=== PATIENT | male | born 1955 | race Caucasian/White ===

== ENCOUNTER 2023-05-15 11:14 | Outpatient (CLI) | payer OTHER, SELFPAY ==
--- NOTE | ~2023-05-15 | XR_ITS ---
AP view of the pelvis and AP and lateral views of the right hip Clinical history: Pain Findings: No acute fracture or dislocation is seen. Osseous alignment is anatomic. There is mild dege nerative change of the right hip joint. Left hip joint is preserved. Soft tissues are unremarkable. 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 Reviewed, dictated and finalized at location . 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
== END 2023-05-15 11:15 ==
PROVIDERS: PCP Family Medicine; Visit Provider Family Medicine
DX: M25.551 Pain in right hip (principal)
CPT/HCPCS: 73502

== ENCOUNTER 2023-07-10 08:01 | Day surgery (SDC) | payer OTHER, SELFPAY ==
[2023-05-27 10:41] VITALS: BMI 27.4
[2023-06-05 10:59] VITALS: BMI 27.0
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
[2023-07-10 09:58] VITALS: BP 119/81; PULSE 104; RESP 20; TEMP 37.6; O2SAT 96
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
[2023-07-10] MEDS: LACTATED RINGERS 1,000 ML 150 ML IV CONT (10:18)
[2023-07-10 11:02] VITALS: BP 101/73; PULSE 86; RESP 16; O2SAT 99
[2023-07-10 11:12] VITALS: BP 116/80; PULSE 78; RESP 16; O2SAT 100
[2023-07-10 11:22] VITALS: BP 119/82; PULSE 73; RESP 16; O2SAT 100
--- NOTE | 2023-07-10 11:36 | WPDANESPN ---
Anes - Prog Note Post-Op Date/Time: 07/10/23 11:36 Cardiovascular status: normal Respiratory status: normal Airway patency: baseline Mental status: baseline Post-Op hydration status: normal Vital Signs: Last Vital Signs Temp 37.6 C 07/10/23 09:58 Pulse 78 07/10/23 11:12 Resp 16 07/10/23 11:12 BP 116/80 07/10/23 11:12 Pulse Ox 100 07/10/23 11:12 O2 Del Method Room Air 07/10/23 11:12 Pain Score (VAS): 0 I/O: Intake & Output 07/09/23 07/10/23 07/10/23 23:59 07:59 15:59 Intake Total 400 Balance 400 Post-procedural complaints: none Patient Feedback: Patient satisfied with anesthetic care. Other Findings: Patient vital signs back to baseline. Patient denies nausea and vomiting. Patient's pain under control. Patient OK for discharge.
== END 2023-07-10 11:45 | disposition home or self-care (01) ==
PROVIDERS: PCP Family Medicine; Visit Provider Internal Medicine Gastroenterology
PROC: 0DJD8ZZ Inspection of Lower Intestinal Tract, Via Natural or Artificial Opening Endoscopic (ICD-10-PCS; CPT 45378; principal; 2023-07-10 11:00)
DX: Z12.11 Encounter for screening for malignant neoplasm of colon (principal); K64.8 Other hemorrhoids
CPT/HCPCS: 45378

== ENCOUNTER → 2023-07-22 15:48 | Outpatient (CLI) | payer OTHER, SELFPAY ==
--- NOTE | ~2023-07-22 | CT_ITS ---
EXAMINATION: CT sinus wo con DATE: 07/22/2023 16:04 INDICATION: Seasonal allergic rhinitis. Chronic maxillary and ethmoid sinusitis TECHNIQUE: Computed tomography (CT) of the paranasal sinuses was performed without contrast. Iterativ e reconstruction technique was employed. Exam dose: 257.01 mGy-cm total exam DLP. COMPARISON: None FINDINGS: Leftward deviation of the nasal septum. Minimal intralamellar cell of right middle nasal turbinate. Moderately prominent symmetric soft tissu e swelling of the nasal turbinates. The ostiomeatal units are patent. There is nodular mucoperiosteal thickening along the superolateral and inferior soto of the left maxillary sinus and mild mucoperiosteal thickening of the lower right maxillary sinus. The frontal sinuses, ethmoid air cells and sphenoid sinuses are well-developed and aerated. The mastoid air cells are well pneumatized and clear. IMPRESSION: Leftward deviation of nasal septum Mild bilateral maxillary sinus disease Minimal intralamellar cell of right middle nasal turbinate Reviewed, dictated and finalized at Location [facility]. Reviewed, dictated and finalized at location L. CE SPEC
== END ==
PROVIDERS: Visit Provider Otolaryngology
DX: J34.2 Deviated nasal septum (principal); J32.0 Chronic maxillary sinusitis; J32.2 Chronic ethmoidal sinusitis; J30.2 Other seasonal allergic rhinitis
CPT/HCPCS: 70486

== ENCOUNTER 2023-08-06 12:30 | Outpatient (RCR) | payer OTHER, SELFPAY ==
--- NOTE | 2023-06-25 15:53 | OPREHPOC ---
Outpatient Therapy Plan of Care This is a Multidisciplinary Plan of Care that may contain components documented by all disciplines (PT, OT, and ST.) PT Problem 1 PT Problem #1 Knowledge Deficit PT Goal 1 Goal Pt to be IND with issued HEP Target Visit 6 PT Problem 2 PT Problem #2 Pain PT Goal 1 Goal Pt to report R hip pain no greater than 3/10 in the last week. Target Visit 6 PT Goal 2 Goal Pt to report 75% improvement in overall symptoms. Target Visit 6 PT Problem 3 PT Problem #3 Impaired Range of Motion PT Goal 1 Goal Pt to improve passive R hip extension to 15 deg Target Visit 6 PT Goal 2 Goal Pt to improve mónica passive hip ext rot to 20 deg Target Visit 6 PT Problem 4 PT Problem #4 Impaired Functional Mobil PT Goal 1 Goal Pt to improve LEFS score from 60/80 to 70/80.
--- NOTE | 2023-06-25 15:54 | PTOPEVAL1 ---
Assessment and note entered by Jaylon Fajardo, PT, DPT Evaluation Information Assessment Status Evaluation Diagnosis R hip pain Subjective Information Pt states he has a 12 year history of intermittent bursitis in his R hip. He states sometimes this pain is activity dependent. He states pain at night while he is trying to sleep is the most limiting factor. He states he is on a pain medication 2x/day. He states he thinks this is a symptom of Covid. Reported Pain Level Pain Score 2: Self Report Assessment PT Clinical Summary Sharath presents to therapy today for his initial evaluation with a diagnosis of R hip pain. Today he demonstrates good hip ROM in all planes with some mild decreases in hip ROM in all directions. He ambulates with compensations d/t lack of R hip extension. Skilled therapy services are indicated to improve mobility, to manage pain, and to return to PLOF without limitations. Plan of Care Interventions Electrical Stimulation,Gait Training,Hot Pack/Cold Pack,Manual Therapy,Neuro Re-education,Patient/ Caregiver Educati,Therapeutic Activities, Therapeutic Exercise PT Services Indicated Yes Treatment Frequency and 1x/wkf for 6 visits Duration These treatments will address the objective and functional deficits as defined above. The patient will be advanced safely and appropriately in order for the patient to progress towards his/her prior level of function. Additional exercises will be introduced and as well as a comprehensive home exercise program upon discharge, if needed, ?to ensure carryover of functional gains achieved in the clinic. This treatment plan has been reviewed and agreement upon by the patient.
--- NOTE | 2023-07-30 12:32 | PCPTNOTE ---
Patient reports he has to cancel this date due to having something come up at work.
--- NOTE | 2023-08-06 13:31 | PTOPDC ---
Assessment and note entered by Jaylon Fajardo, PT, DPT Evaluation Information Assessment Status Discharge Diagnosis R hip pain Subjective Information Pt states overall his pain is doing better but he would not say he is 100% better. He states he still occasionally gets pain getting up from a low chair or getting/in out of car. He states he has a better understanding on his hip now. He states he is not sure if therapy is working or if it is starting to get better on its own. Reported Pain Level Pain Score 1: Self Report Assessment PT Clinical Summary Sharath presents to therapy today for his progress report following 5 visits of skilled therapy to treat his diagnosis of R hip pain. Today he demonstrates minimal improvements in his hip int rot and extension ROM. His limited hip extension is still causing gait deviations and functional limitations. He reports improvements in his function and pain. He would like to follow up with ortho and continue his HEP IND at this time. He will be discharged. Plan of Care PT Services Indicated No
== END 2023-08-07 09:20 | disposition home or self-care (01) ==
LOC: ANHGOSHPT 12:30
PROVIDERS: PCP Family Medicine; Visit Provider Family Medicine
DX: M25.551 Pain in right hip (principal); G89.29 Other chronic pain
CPT/HCPCS: 97110; 97161; 97530

== ENCOUNTER 2025-01-27 15:49 | Emergency (ER) | payer OTHER, SELFPAY ==
[2025-01-27 15:58] VITALS: BP 124/84; PULSE 95; RESP 16; TEMP 36.7; O2SAT 98
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
== END 2025-01-27 16:37 | disposition home or self-care (01) ==
PROVIDERS: Emergency Provider Nurse Practitioner; PCP Family Medicine
DX: H66.001 Acute suppurative otitis media without spontaneous rupture of ear drum, right ear (principal); H61.21 Impacted cerumen, right ear; R73.03 Prediabetes; E53.8 Deficiency of other specified B group vitamins; E55.9 Vitamin D deficiency, unspecified
CPT/HCPCS: 69210; 99213; A9270; G0463